=== PATIENT | male | born 1955 | race Hispanic/Latino ===

== ENCOUNTER 2017-11-19 08:12 | Emergency (ER) | payer MEDICAID, OTHER ==
[2017-11-19 08:13] VITALS: BMI 21.7
[2017-11-19] MEDS ORDERED: Sodium Chloride 0.9% 1,000 ML IV STA (09:08)
--- NOTE | 2017-11-19 10:57 | C.PDOC ---
History Of Present Illness 62 years old male presents to ED after he was found sleeping in the front of a [place] on the street. Patient complaints of generalized weakness. Patient is homeless. Patient was discharged on Flexeil from [place] [facility] yesterday with negative CXR and labs. Denies any other physical complaints. Time Seen by Provider: 11/19/17 08:50 Chief Complaint (Nursing): Lower Extremity Problem/Injury History Per: Patient, EMS History/Exam Limitations: no limitations Onset/Duration Of Symptoms: Hrs Current Symptoms Are (Timing): Still Present Recent travel outside of the [place]: No Past Medical History Reviewed: Historical Data, Nursing Documentation, Vital Signs Vital Signs: Last Vital Signs Temp 97.8 F 11/19/17 08:25 Pulse 89 11/19/17 08:25 Resp 16 11/19/17 08:25 BP 133/90 11/19/17 08:25 Pulse Ox 96 11/19/17 08:25 - Medical History PMH: Back Problems, Benign Prostatic Hyperplasia, HTN, Hyperlipidemia, TIA, Chronic Pain (Leg swelling secondary to herniated 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 Constitutional: Positive for: Weakness (Generalized) Physical Exam - Physical Exam Appears: Well, Non-toxic, No Acute Distress Skin: Normal Color, Warm, Dry, No Rash Head: Atraumatic, Normacephalic Eye(s): bilateral: Normal Inspection, PERRL, EOMI Ear(s): Bilateral: Normal Oral Mucosa: Moist Neck: Normal, Supple Chest: Symmetrical, No Tenderness Cardiovascular: Rhythm Regular, No Murmur Respiratory: Normal Breath Sounds, No Decreased Breath Sounds, No Accessory Muscle Use, No Rales, No Rhonchi, No Wheezing Gastrointestinal/Abdominal: Bowel Sounds, Soft, No Tenderness Extremity: Normal ROM, No Deformity Extremity: Bilateral: Atraumatic, Normal Color And Temperature, Normal ROM Neurological/Psych: Oriented x3, Normal Speech Gait: Steady ED Course And Treatment O2 Sat by Pulse Oximetry: 96 (RA) Pulse Ox Interpretation: Normal - Other Rad CXR X-Ray: Viewed By Me, Read By Radiologist Interpretation: Date of service: 11/19/2017. PROCEDURE: CHEST RADIOGRAPH, 1 VIEW. HISTORY: weakness. COMPARISON: No prior study available for comparison. FINDINGS: LUNGS: Poor inspiration with low lung volumes, crowded bronchovascular markings and mild bibasilar atelectasis. Questionable small left-sided pleural effusion. PLEURA: As above. No pneumothorax. CARDIOVASCULAR: Cardiomegaly. OSSEOUS STRUCTURES: No significant abnormalities. VISUALIZED UPPER ABDOMEN: Normal. OTHER FINDINGS: None. IMPRESSION: Poor inspiration with low lung volumes, crowded bronchovascular markings and mild bibasilar atelectasis. Questionable small left-sided pleural effusion Progress Note: Administered IV fluids. Offered to repeat EKG, blood work, CXR, and urinalysis but patient refused and only agreed to repeat CXR. Patient is currently sitting comfortably in ER and is requesting to eat specific food. Disposition - Disposition Referrals: [facility] [Outside] Disposition: HOME/ ROUTINE Disposition Time: 12:19 Condition: STABLE Additional Instructions: Folow up in Clinic within 1-2 days. Return to ED if feel worse. Instructions: Generalized Weakness (DC), Weakness (ED) Forms: [employer] (Greenlandic) - Clinical Impression Clinical Impression: Homelessness, Weakness - PA / GOVERNMENT AFFAIRS FELLOW / Resident Statement MD/DO has reviewed & agrees with the documentation as recorded. - Scribe Statement The provider has reviewed the documentation as recorded by the Lauri Amin All medical record entries made by the Katieibaliya were at my direction and personally dictated by me. I have reviewed the chart and agree that the record accurately reflects my personal performance of the history, physical exam, medical decision making, and the department course for this patient. I have also personally directed, reviewed, and agree with the discharge instructions and disposition.
[2017-11-19 12:29] VITALS: BP 117/73; PULSE 84; RESP 18; TEMP 97.9
--- NOTE | 2017-11-19 14:43 | RAD ---
Date of service: 11/19/2017 PROCEDURE: CHEST RADIOGRAPH, 1 VIEW HISTORY: weakness COMPARISON: No prior study available for comparison FINDINGS: LUNGS: Poor inspiration with low lung volumes, crowded bronchovascular markings and mild bibasilar atelectasis. Questionable small left-sided pleural effusion. PLEURA: As above. No pneumothorax CARDIOVASCULAR: Cardiomegaly. OSSEOUS STRUCTURES: No significant abnormalities. VISUALIZED UPPER ABDOMEN: Normal. OTHER FINDINGS: None. IMPRESSION: Poor inspiration with low lung volumes, crowded bronchovascular markings and mild bibasilar atelectasis. Questionable small left-sided pleural effusion
[2017-11-19 15:15] VITALS: O2SAT 96
== END 2017-11-19 13:16 | disposition home or self-care (01) ==
LOC: C.ER 08:12
DX: R53.1 Weakness (principal); Z59.0 Homelessness